=== PATIENT | female | born 1970 | race Caucasian/White ===

== ENCOUNTER → 2020-03-15 | Outpatient (CLI) | payer OTHER ==
[~2020-03-15] MED LIST: IOHEXOL 300 MG/ML 75 ML VIAL. IV ONE
--- NOTE | 2020-03-15 15:21 | RAD ---
Examination: CT ABDOMEN PELVIS WO/W History: Reason: HEMATURIA / Spl. Instructions: / History: Comparison/Correlation: None Findings: Axial images of the abdomen and pelvis were obtained prior to and following IV contrast administration. Post contrast imaging was performed in the nephrographic and excretory phases. The lung bases are clear. Liver, spleen, pancreas, adrenal glands, and kidneys are unremarkable. There are a few very small left renal cysts. No radiopaque collecting system calculi. No enlarged abdominal or pelvic lymph nodes. Appendix is normal. No ascites or pelvic free fluid. No suspicious filling defects identified involving the collecting system. Right ureter however is not significantly opacified with contrast. The left ureter is visible distended with contrast. Urinary bladder is unremarkable. Small umbilical hernia containing omental fat. Uterus is unremarkable. Adnexal regions are unremarkable. Calcific density is present at the posterior pelvic region to the right of midline. This finding is of indeterminate significance measuring 3.8 cm longitudinal by 3.3 cm anteroposterior by 2 cm transverse. Concentric disc bulge at L3-4 is present. Moderate L4-5 disc space narrowing is present with mild concentric disc bulge. Impression: No radiopaque collecting system calculi or evidence of collecting system obstruction. No mass lesions identified involving the collecting systems. The right ureter mostly does not opacify on this exam. Indeterminate calcific density at the posterior low pelvis is present without soft tissue or other suspicious component. Correlate for possibility of old hematoma or other benign calcific process. PQRS Compliance Statement: One or more of the following individualized dose reduction techniques were utilized for this examination: 1. Automated exposure control 2. Adjustment of the mA and/or kV according to patient size 3. Use of iterative reconstruction technique Electronically signed by: Jay Cao MD (03/15/2020 3:18 PM) [facility]
== END ==
LOC: CT 13:03
PROVIDERS: ATTEND Family Medicine
DX: N28.1 Cyst of kidney, acquired (principal); K42.0 Umbilical hernia with obstruction, without gangrene; R31.9 Hematuria, unspecified
CPT/HCPCS: 74178; Q9967

== ENCOUNTER → 2020-08-08 | Outpatient (CLI) | payer OTHER ==
[~2020-08-08] MED LIST changes: +IOHEXOL 240 MG/ML 50ML VIAL. ONE
--- NOTE | 2020-08-09 16:43 | RAD ---
Exam: CT abdomen/pelvis with intravenous contrast Indication: Left lower quadrant pain, history of kidney stones Comparison: CT abdomen pelvis 03/15/2020 Technique: Helical CT imaging performed of the abdomen and pelvis after the intravenous administratio n of intravenous contrast. Sagittal and coronal reformats were obtained. One or more of the following individualized dose reduction techniques were utilized for this examinat ion: 1. Automated exposure control 2. Adjustment of the mA and/or kV according to patient size 3. Use of iterative reconstruction technique. Findings: Lower chest: Lung bases are clear. Liver: Normal. Gallbladder/Biliary Tree: Normal. Pancreas: Normal. Spleen: Normal. Adrenal Glands: Normal. Kidneys/Ureters/Bladder: The kidneys are normal in size and enhance symmetrically. There is new mild bilateral hydronephrosis. On the left, a 7 mm calculus is at the ureteropelvic junction. On the right , there is no definite obstructing calcification visualized. No nephrolithiasis. Left ureter is mildl y dilated. Bladder is normal in appearance. Reproductive Organs: Uterus is retroverted. Probable small hemorrhagic cyst in the left ovary is unch anged. Stomach, small bowel, and colon: Stomach is distended with fluid and debris. There is no small bowel obstruction. Colon and appendix are normal. Vasculature: Abdominal aorta is normal in caliber. Lymph Nodes: No lymphadenopathy. Peritoneum and retroperitoneum: No free fluid or free air. A 3.8 x 2.0 cm calcified mass in the indira cral space is unchanged in size but has changed in position/configuration, and may be mobile. Bones: No acute fracture or osseous lesion. Impression: 1. New mild bilateral hydronephrosis. On the left, there is a 7 mm obstructing calculus at the ureter ovesicular junction. There is no visualized obstructing calculus on the right. Consider CT urogram if indicated. 2. Unchanged size of the calcified mass in the presacral space, possibly mobile. Electronically signed by: Mercedes Mckeon MD (08/09/2020 4:41 PM) [id number]
== END ==
LOC: CT 13:23
PROVIDERS: ATTEND Specialist
DX: N13.30 Unspecified hydronephrosis (principal); N20.1 Calculus of ureter; N85.4 Malposition of uterus; K31.89 Other diseases of stomach and duodenum
CPT/HCPCS: 74177; Q9967